=== PATIENT | female | born 1975 | race Caucasian/White ===

== ENCOUNTER 2023-02-07 10:53 | Outpatient (OUT) | payer BC, SELFPAY ==
--- NOTE | 2023-02-07 10:57 | MM_ITS ---
Patient Name: MADINA--------- HERIBERTO MR#: [id number] : 1975 Exam Date: 02/07/2023 Ordering Doctor: DR NORMA GARRETT RADIOLOGY REPORT PROCEDURE: MM TOMOSYNTHESIS SCREENING BI COMPARISON: MG MAMM SCREEN LAYA W CAD, 01/23/2017. MG MAMM SCREEN LAYA W CAD, 02/05/2018. INDICATIONS: Screening Calculator Name NCI Breast Cancer Risk Assessment Tool 5 Year Breast Cancer Risk 0.70% Lifetime Breast Cancer Risk 6.70% Personal Breast Cancer No Personal Ovarian Cancer No Treatments None Family Cancers Grandmother-maternal with breast cancer at age ~45; Cousin-maternal with breast cancer at age ~40. LOCATION: [facility] BREAST COMPOSITION: Extremely dense, which lowers the sensitivity of mammography. FINDINGS: DIAGNOSTIC CATEGORY 0--INCOMPLETE: NEED ADDITIONAL IMAGING EVALUATION. Scattered benign-appearing calcifications are present. Scattered benign-appearing lymph nodes are present. RIGHT BREAST: No significant suspicious finding. LEFT BREAST: New well-circumscribed mildly lobular 1.2 x 0.9 cm nodule lower inner quadrant of the anterior left breast. Body imaging and ultrasound follow-up is required RECOMMENDATIONS: ADDITIONAL MAMMOGRAPHIC VIEWS REQUIRED: LEFT BREAST - spot compression ULTRASOUND: LEFT BREAST PLEASE NOTE: A NORMAL MAMMOGRAM DOES NOT EXCLUDE THE POSSIBILITY OF BREAST CANCER. A CLINICALLY SUSPICIOUS PALPABLE LUMP SHOULD BE BIOPSIED. Dictated by: Jose Enrique Thompson MD on 02/08/2023 at 08:07 Approved by: Jose Enrique Thompson MD on 02/08/2023 at 08:09
== END 2023-02-07 10:54 | disposition home or self-care (01) ==
LOC: MAMMO 10:53
PROVIDERS: PCP Physician Assistant; Visit Provider Physician Assistant
DX: Z12.31 Encounter for screening mammogram for malignant neoplasm of breast (principal); Z80.3 Family history of malignant neoplasm of breast; N63.24 Unspecified lump in the left breast, lower inner quadrant
CPT/HCPCS: 77063; 77067

== ENCOUNTER 2023-02-27 07:54 | Outpatient (OUT) | payer BC, SELFPAY ==
--- NOTE | 2023-02-27 08:00 | MM_ITS ---
Patient Name: MADINA LOUIS MR#: [id number] : 1975 Exam Date: 02/27/2023 Ordering Doctor: DR NORMA GARRETT RADIOLOGY REPORT PROCEDURE: MM DIAGNOSTIC MAMMO UNILAT LT, 02/27/2023, 08:03 US BREAST LT LIMITED, 02/27/2023, 08:08 COMPARISON: MM TOMOSYNTHESIS SCREENING BI, 02/07/2023. MG MAMM SCREEN LAYA W CAD, 02/05/2018. INDICATIONS: Abnormal Mammogram Of Left Breast R92.8 Calculator Name NCI Breast Cancer Risk Assessment Tool 5 Year Breast Cancer Risk 0.70% Lifetime Breast Cancer Risk 6.70% Personal Breast Cancer No Personal Ovarian Cancer No Treatments None Family Cancers Grandmother-maternal with breast cancer at age ~45; Cousin-maternal with breast cancer at age ~40. LOCATION: [facility] BREAST COMPOSITION: Extremely dense, which lowers the sensitivity of mammography. FINDINGS: DIAGNOSTIC CATEGORY 3--PROBABLY BENIGN FINDING. THE FOLLOWING FINDING(S) HAS A HIGH PROBABILITY OF A BENIGN ETIOLOGY: Spot compression and ultrasound images of left breast demonstrate persistent 10 x 9.5 x 7.3 mm lobular well-defined nodule in the lower inner quadrant the anterior breast. Ultrasound demonstrates 1.1 cm from the nipple a complex cystic structure measuring 5.4 x 7.5 x 9.1 mm, this lesion is significant for multiple internal soft tissue echogenicity septations without definitive blood flow. A complex cyst is favored, in light of the change from the prior exam a 6 month follow-up ultrasound and mammogram is recommended to document stability RECOMMENDATIONS: SHORT TERM FOLLOW-UP DIAGNOSTIC MAMMOGRAM LEFT BREAST IN 6 MONTHS. SHORT TERM FOLLOW-UP ULTRASOUND LEFT BREAST IN 6 MONTHS. PLEASE NOTE: A NORMAL MAMMOGRAM DOES NOT EXCLUDE THE POSSIBILITY OF BREAST CANCER. A CLINICALLY SUSPICIOUS PALPABLE LUMP SHOULD BE BIOPSIED. Dictated by: Jose Enrique Thompson MD on 02/27/2023 at 08:36 Approved by: Jose Enrique Thompson MD on 02/27/2023 at 08:40
== END 2023-02-27 07:55 | disposition home or self-care (01) ==
LOC: MAMMO 07:54
PROVIDERS: PCP Physician Assistant; Visit Provider Physician Assistant
DX: R92.8 Other abnormal and inconclusive findings on diagnostic imaging of breast (principal); Z80.3 Family history of malignant neoplasm of breast
CPT/HCPCS: 76642; 77065

== ENCOUNTER 2023-08-28 10:42 | Outpatient (OUT) | payer BC, SELFPAY ==
--- NOTE | 2023-08-28 10:45 | MM_ITS ---
Patient Name: MADINA LOUIS MR#: [id number] : 1975 Exam Date: 08/28/2023 Ordering Doctor: DR NORMA GARRETT RADIOLOGY REPORT PROCEDURE: MM TOMOSYNTHESIS DIAGNOSTIC LT, 08/28/2023, 10:55 US BREAST LT LIMITED, 08/28/2023, 11:33 COMPARISON: US BREAST LT LIMITED, 02/27/2023. MM DIAGNOSTIC MAMMO UNILAT LT, 02/27/2023. MM TOMOSYNTHESIS SCREENING BI, 02/07/2023. INDICATIONS: Abnormal mammogram of left breast R92.8 Calculator Name NCI Breast Cancer Risk Assessment Tool 5 Year Breast Cancer Risk 0.70% Lifetime Breast Cancer Risk 6.70% Personal Breast Cancer No Personal Ovarian Cancer No Treatments None Family Cancers Grandmother-maternal with breast cancer at age ~45; Cousin-maternal with breast cancer at age ~40. LOCATION: [facility] BREAST COMPOSITION: The breasts are extremely dense, which lowers the sensitivity of mammography. FINDINGS: DIAGNOSTIC CATEGORY 4--SUSPICIOUS FOR MALIGNANCY. FINDING DOES NOT EXHIBIT CLASSIC FINDINGS OF BREAST CANCER: LEFT BREAST: Persistent 1 cm irregular mass within anterior lower-inner quadrant. Ultrasound evaluation demonstrates a 7 x 7 x 5 mm irregular partially cystic, now partially solid mass. Given the change on today's ultrasound study and it is new appearance on the 2022 mammogram, ultrasound-guided tissue sampling is recommended at this time. RECOMMENDATIONS: ULTRASOUND-GUIDED CORE BIOPSY: LEFT BREAST Active recommendations from prior exams: SHORT TERM FOLLOW-UP DIAGNOSTIC MAMMOGRAM LEFT BREAST IN [#MONTHS] MONTHS. Due on 08/29/2023. SHORT TERM FOLLOW-UP ULTRASOUND LEFT BREAST IN [#MONTHS] MONTHS. Due on 08/29/2023. PLEASE NOTE: A NORMAL MAMMOGRAM DOES NOT EXCLUDE THE POSSIBILITY OF BREAST CANCER. A CLINICALLY SUSPICIOUS PALPABLE LUMP SHOULD BE BIOPSIED. Dictated by: Boyd Barksdale M.D. on 08/28/2023 at 11:45 Approved by: Boyd Barksdale M.D. on 08/28/2023 at 11:51
== END 2023-08-28 10:43 | disposition home or self-care (01) ==
LOC: MAMMO 10:42
PROVIDERS: PCP Physician Assistant; Visit Provider Physician Assistant
DX: R92.8 Other abnormal and inconclusive findings on diagnostic imaging of breast (principal); Z80.3 Family history of malignant neoplasm of breast; N63.24 Unspecified lump in the left breast, lower inner quadrant
CPT/HCPCS: 76642; 77065; G0279